=== PATIENT | male | born 1985 | race Caucasian/White ===

== ENCOUNTER 2019-08-30 15:39 | Outpatient (CLI) | payer OTHER, SELFPAY ==
--- NOTE | 2019-09-05 16:32 | SLEEP_ITS ---
CPAP titration. DATE OF STUDY: 08/30/2019 REASON FOR THIS STUDY: Home sleep test with an apnea-hypopnea index of 35.5, consistent with severe obstructive sleep apnea syndrome. HISTORY: This patient is a 33-year-old male, 71 inches tall, weighing 235 pounds with a body mass index of 32.8. He has complaints of nonrestorative sleep, excessive daytime sleepiness, witnessed apneas at night with very loud snoring. He constantly snores and it is loud enough that other people complain about it. There is a positive family history with his father and grandmother having sleep apnea. He constantly has trouble sleeping with a cold, frequently gasps for breath at night and frequently has breathing problems witnessed by others. He rarely sweats excessively at night or notices his heart pounding at night. He frequently falls asleep during the day, rarely involuntarily, never while driving. He does not have loss of muscle tone with strong emotion. He frequently has daytime difficulties due to excessive sleepiness. 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 He does not feel paralyzed on waking or falling asleep. He denies vivid dreamlike scenes upon awakening or falling asleep. He frequently is afraid to go to sleep. He rarely has nightmares, rarely remembers his dreams, rarely has racing thoughts or feels sad or depressed. He occasionally has anxiety. He rarely has muscular tension. He rarely notices parts of his body jerking. He occasionally kicks at night, has crawly achy feelings in his legs before bed and occasionally has leg pain at night. He frequently has morning jaw pain. He rarely grinds his teeth at night. He occasionally is bothered by pain during the day. He rarely is bothered by pain at night. He frequently wakes up feeling stiff in the morning with sore achy muscles. He occasionally wakes up with pain in the neck and spine. He has headaches and bowel disturbances. He goes to bed at 10:00 p.m. taking 30 to 60 minutes to fall asleep typically waking twice at night for a few minutes. During that time, he will roll over and go back to sleep. He wakes up at 04:30 in the morning. He estimates 6 hours of sleep at night. His sleep is occasionally disturbed by his gasping at night. He does take naps. A short nap is not refreshing. He is drowsy in the morning for an hour or longer. He feels better in the evening than other times a day. MEDICAL COMORBIDITIES: Seasonal allergies, constipation, history of syncope, hypertension, asthma. MEDICATIONS: Aspirin 81 mg a day. HABITS: The patient is a previous smoker. He has 2 cans of caffeinated beverage a day. No alcohol. No recreational drugs. His prior home sleep test on August 17, 2019 showed an AHI of 35.5, a supine AHI of 41.2 with a mean saturation of 92%, minimum saturation of 70%. DESCRIPTION OF THE STUDY: On the [place] Sleepiness Scale, the score is elevated at 11. This was conducted as a CPAP titration in the lab using the [employer] multiple channel system including EOG, EEG, submental EMG, EKG, nasal and oral airflow using thermistors, nasal pressure sensors, chest and abdominal belts, body position data and pulse oximetry. The study was scored using CMS guidelines. Duration of the study was 452.6 minutes. Sleep time was 410 minutes. Sleep efficiency was 90.6%. Sleep latency was 6.6 minutes and REM latency was 107 minutes. The patient had 24 awakenings and spent 8.1% of the study awake after sleep onset 36 minutes. Sleep architecture showed 6.8% stage 1 sleep, 66.6% stage 2 sleep, no stage 3 sleep and 18.5% stage REM. The patient spent 32.6% of the study supine. The remainder was non-supine. He had 4 REM episodes. Sleep architecture was relatively normal. The apnea-hypopnea index was 1.9. The obstructive
== END 2019-08-30 15:40 | disposition home or self-care (01) ==
LOC: ANHCSM 15:39
PROVIDERS: PCP Family Medicine
DX: G47.33 Obstructive sleep apnea (adult) (pediatric) (principal); I10 Essential (primary) hypertension; J45.909 Unspecified asthma, uncomplicated; Z79.82 Long term (current) use of aspirin; Z87.891 Personal history of nicotine dependence
CPT/HCPCS: 95811

== ENCOUNTER 2023-01-31 08:20 | Emergency (ER) | payer OTHER, SELFPAY ==
[2023-01-31 08:28] VITALS: BP 133/88; PULSE 85; RESP 18; TEMP 36.7; O2SAT 97
--- NOTE | 2023-01-31 08:35 | ED.URI ---
HPI - URI/Sore Throat General Chief Complaint: Upper Respiratory Infection Stated Complaint: Congestion,Cough Time Seen by Provider: 01/31/23 08:30 Source: patient and RN notes reviewed Mode of arrival: ambulatory Limitations: no limitations History of Present Illness HPI Narrative: 37 y/o male presented for c/o productive cough and tightness in chest when coughing, along with sinus congestion for over one week. Taking Zyrtec or Erin for about 3 doses without relief. States he gets similar symptoms about 2 times every year. Denies chest pain, palpitations, sob, wheezing, lethargy, body aches, n/v/d/f/c. Denies sick contacts. MD elicited complaint: cough Related Data Allergies Allergy/AdvReac Type Severity Reaction Status Date / Time No Known Allergies Allergy Verified 01/31/23 08:23 Review of Systems Review of Systems: CONSTITUTIONAL: Denies malaise, chills, sweats, fever EYES: Denies visual changes, redness, or discharge ENT: Reports rhinorrhea, congestion, denies sinus pain, otalgia, sore throat CARDIOVASCULAR: Denies chest pain, palpitations, edema RESPIRATORY: Reports cough, post nasal drainage. Denies dyspnea GASTROINTESTINAL: Denies abdominal pain, nausea, vomiting, diarrhea SKIN: Denies rash or itching MUSCULOSKELETAL: Denies myalgia NEUROLOGIC: Denies headache PMFSH Past Medical History Medical History Abscess of buttock Asthma Bilateral inguinal hernia x5 Bronchitis Seasonal allergies Syncope Surgical History Surgical History H/O bilateral inguinal hernia repair x5 Hx of tonsillectomy Family History Family History Father Acute myocardial infarction COPD (chronic obstructive pulmonary disease) Social History Social History Years smoked: 6 Smoking status: Former smoker Smokeless tobacco user: chewing tobacco Gender identity (if verbalized by the patient): Male Exam Narrative: GENERAL: well-appearing, nontoxic no acute distress. HEAD: Normocephalic EYES: PERRLA, conjunctivae clear ENT: Mucous membranes moist. TMs with mild erythema and dull light reflex bilaterally; no tragal tenderness. Oropharynx erythematous without lesions or exudate, tonsils absent. NECK: Supple. No lymphadenopathy CHEST: Clear to auscultation, breath sounds equal. No wheezing, rhonchi, rales, or stridor. No respiratory distress, speaks in full sentences. HEART: Regular rate and rhythm. No murmur heard. SKIN: Warm, dry, no rash. NEURO: Alert and oriented x3. PSYCH: Normal mood and affect Course Course Emergency Course: Patient is aware of diagnosis, understands and agrees to treatment plan. Anticipatory guidance given. Patient agrees to follow-up as directed and is aware of reasons to seek care at the emergency department. Portions of this record may have been created with voice recognition software Level of Care: Express Care Visit Vital Signs Vital signs: Vital Signs Temperature 98.1 F 01/31/23 08:28 Pulse Rate 85 01/31/23 08:28 Respiratory Rate 18 01/31/23 08:28 Blood Pressure 133/88 01/31/23 08:28 Pulse Oximetry 97 01/31/23 08:28 Oxygen Delivery Room Air 01/31/23 08:28 Temperature 98.1 F 01/31/23 08:28 Pulse Rate 85 01/31/23 08:28 Respiratory Rate 18 01/31/23 08:28 Blood Pressure 133/88 01/31/23 08:28 Pulse Oximetry 97 01/31/23 08:28 Oxygen Delivery Room Air 01/31/23 08:28 reviewed MDM - URI/Sore Throat MDM Narrative Medical decision making narrative: Discussed physical exam findings. Advised supportive measures and signs/symptoms to go to the ER. Pt is appropriate for outpt treatment and f/u. Differential Diagnosis Differential diagnosis: Likely upper respiratory infection, sinusitis and viral infection
== END 2023-01-31 08:42 | disposition home or self-care (01) ==
PROVIDERS: Emergency Provider Nurse Practitioner Family
DX: J06.9 Acute upper respiratory infection, unspecified (principal); F17.220 Nicotine dependence, chewing tobacco, uncomplicated; J45.909 Unspecified asthma, uncomplicated
CPT/HCPCS: 99213; G0463

== ENCOUNTER 2023-09-28 08:08 | Emergency (ER) | payer OTHER, SELFPAY ==
[2023-09-28 08:30] VITALS: BP 136/93; PULSE 98; RESP 18; TEMP 36.5; O2SAT 99
[2023-09-28 08:31] VITALS: BP 136/93; PULSE 98; RESP 18; TEMP 36.5; O2SAT 99
--- NOTE | 2023-09-28 08:41 | ED.URI ---
HPI - URI/Sore Throat General Chief Complaint: Upper Respiratory Infection Stated Complaint: dizziness,congestion Time Seen by Provider: 09/28/23 08:41 Source: patient Mode of arrival: ambulatory Limitations: no limitations History of Present Illness HPI Narrative: 37-year-old male presents with cough, nasal congestion, postnasal drainage, headache, body aches, fatigue for the past 5 days. Patient reports bilateral ear pressure, feels like ears are going to blow . No chest pain or shortness of breath. Taking [id number] Tylenol cold and flu. All systems reviewed and negative except as noted above. Related Data Allergies Allergy/AdvReac Type Severity Reaction Status Date / Time mushroom Allergy Anaphylaxis Verified 09/28/23 08:31 Review of Systems Review of Systems: CONSTITUTIONAL: Reports fatigue, fever. Denies chills, or sweats. EYES: Denies visual changes, redness, or discharge. ENT: Reports rhinorrhea, congestion, sore throat, sinus pressure, bilateral ear pain. CARDIOVASCULAR: Denies chest pain, palpitations, or edema. RESPIRATORY: Denies cough or dyspnea. GASTROINTESTINAL: Denies abdominal pain, nausea, vomiting, or diarrhea. GENITOURINARY: Denies dysuria or hematuria. SKIN: Denies rash or itching. MUSCULOSKELETAL: Denies back pain, joint pain, or myalgia. NEUROLOGIC: reports headache. Denies numbness, or weakness. PSYCHIATRIC: Denies anxiety or depression. All other systems reviewed are negative, except as documented in HPI. [facility] Past Medical History Medical History (Updated 09/28/23 @ 08:53 by Tala Sherman NP) Abscess of buttock Asthma Bilateral inguinal hernia x5 Bronchitis Seasonal allergies Syncope Surgical History Surgical History H/O bilateral inguinal hernia repair x5 Hx of tonsillectomy Family History Family History Father Acute myocardial infarction COPD (chronic obstructive pulmonary disease) Social History Social History Years smoked: 6 Smoking status: Former smoker Smokeless tobacco user: chewing tobacco Gender identity (if verbalized by the patient): Male Comments At time of signature, agree with nursing past medical, surgical, social and family history. There is no relevant family history pertinent to the presenting complaint. Exam Narrative: GENERAL: This is a well-nourished, well-developed patient, in no apparent distress. HEAD: normocephalic, atraumatic. EYES: PERRL. Sclera clear/white. Vision is grossly intact. EARS: External ears normal, auditory canals clear and without drainage, Bilateral TMs erythematous, bulging. Hearing grossly intact. NOSE: External nose normal with purulent nasal drainage, erythema to bilateral nares with swelling. THROAT: Mucous membranes moist, Erythematous with postnasal drainage. NECK: Neck supple, non-tender without lymphadenopathy, masses or thyromegaly. CARDIOVASCULAR: Regular rate and rhythm without murmurs, gallops, or rubs. RESPIRATORY: Clear to auscultation. Breath sounds equal bilaterally. No wheezes, rales, or rhonchi. SKIN: warm, Dry, intact with no suspicious lesions or rash, good texture and turgor. NEURO: awake, alert, and oriented to person, place and time. There were no obvious focal neurologic abnormalities. EXTREMITIES: No joint tenderness, effusion, or edema noted. Course Course Level of Care: Express Care Visit Vital Signs Vital signs: Vital Signs Temperature 36.5 C 09/28/23 08:30 Pulse Rate 98 09/28/23 08:30 Respiratory Rate 18 09/28/23 08:30 Blood Pressure 136/93 H 09/28/23 08:30 Pulse Oximetry 99 09/28/23 08:30 Oxygen Delivery Room Air 09/28/23 08:30 Temperature 36.5 C 09/28/23 08:31 Pulse Rate 98 09/28/23 08:31 Respiratory Rate 18 09/28/23 08:31 Blood Pressure 136/
== END 2023-09-28 09:05 | disposition home or self-care (01) ==
PROVIDERS: Emergency Provider Nurse Practitioner Family; PCP Family Medicine
DX: H65.193 Other acute nonsuppurative otitis media, bilateral (principal); J01.90 Acute sinusitis, unspecified; Z20.822 Contact with and (suspected) exposure to COVID-19; F17.220 Nicotine dependence, chewing tobacco, uncomplicated; J45.909 Unspecified asthma, uncomplicated
CPT/HCPCS: 87426; 87804; 99213; G0463

== ENCOUNTER 2024-04-05 06:27 | Emergency (ER) | payer OTHER, SELFPAY ==
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
[2024-04-05 06:33] VITALS: BP 131/75; PULSE 101; RESP 20; TEMP 36.7; O2SAT 99
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
[2024-04-05] MEDS: HYDROcodone/acetaminophen (*CRX) 5-325 MG TABLET 1 TAB PO ×2 (10:31→11:35)
[2024-04-05] MEDS: CYCLOBENZAPRINE HCL 10 MG TABLET PO (10:31)
[2024-04-05] MEDS: dexAMETHasone SOD PHOS INJ 10 MG/ML 1 ML VIAL IM (11:35)
[2024-04-05] MEDS: KETOROLAC 30 MG/ML VIAL (*BKC) IM (11:35)
[2024-04-05 11:54] VITALS: BP 133/78; PULSE 85; RESP 16; O2SAT 100
== END 2024-04-05 11:55 | disposition home or self-care (01) ==
PROVIDERS: Emergency Provider Emergency Medicine; PCP Family Medicine
DX: S19.9XXA Unspecified injury of neck, initial encounter (principal); S39.92XA Unspecified injury of lower back, initial encounter; J45.909 Unspecified asthma, uncomplicated; Z87.891 Personal history of nicotine dependence; V44.5XXA Car driver injured in collision with heavy transport vehicle or bus in traffic accident, initial encounter; M47.814 Spondylosis without myelopathy or radiculopathy, thoracic region; M47.816 Spondylosis without myelopathy or radiculopathy, lumbar region
CPT/HCPCS: 72125; 72128; 72131; 96372; 99284; A9270; J1100; J1885